=== PATIENT | male | born 1970 | race African-American/Black ===

== ENCOUNTER 2016-11-14 14:05 | Emergency (ER) | payer MEDICAID ==
[~2016-11-14] VITALS: Ht 165.1 cm; Wt 64.4 kg
[2016-11-14 14:23] VITALS: BP 113/73
[2016-11-14 14:45] LABS: APPEARANCE,URINE CLEAR; KETONES,URINE NEGATIVE (NEGATIVE); LEUKOCYTE ESTERASE ,URINE 2+ (NEGATIVE); NITRITE,URINE NEGATIVE (NEGATIVE); PH,URINE 6 (4.5-8.0); PROTEIN,URINE NEGATIVE (NEGATIVE); UROBILINOGEN,URINE 1 MG/DL (0.0-1.0)
[2016-11-14 14:57] LABS: RBC,URINE 0-2 /HPF (0 - 0)
[2016-11-14 14:59] LABS: BACTERIA,URINE FEW /HPF; SQUAMOUS EPITHELIAL CELL,UR OCCASIONAL /LPF (NONE/OCC)
[2016-11-14] MEDS ORDERED: CEPHALEXIN500 MG ORAL (15:08)
[2016-11-14] MEDS ORDERED: PHENAZOPYRIDIN200 MG ORAL (15:08)
[2016-11-14] MEDS ORDERED: PROAIR HFA8.5 GM INH (15:08)
[2016-11-14] MEDS ORDERED: Lidocaine 1% MPF 10mg/ml 5ml ONE (15:11)
[2016-11-14 15:14] VITALS: BP 124/71
[2016-11-14] MEDS ORDERED: Azithromycin 250mg tab ORAL ONE (15:15)
--- NOTE | 2016-11-14 19:51 | Emergency Room Report ---
History of Present Illness General Chief Complaint: Male Urogenital Problems Source: Patient Present Illness HPI The patient is a 46 year-old male presenting for possible STD exposure and dysuria. The patient states that he has been sick she active with a female which he is concerned about for an STD. The patient denies any discharge but does admit to dysuria which is described as an 8/10 burning with urination. Pain does not radiate. He also admits to seeing blood in his urine occasionally. The patient does admit to having STDs in the past. He denies any other symptoms including nausea, vomiting, fever, chills, testicular pain, rash Allergies: Coded Allergies: CODEINE (Verified Allergy, Unknown, 11/14/16) Patient History Past Medical History: see triage record Pertinent Family History: none Reviewed Nursing Documentation: PMH: Agreed, PSxH: Agreed Nursing Documentation-PMH Past Medical History: No History, Except For Hx Asthma: Yes Hx COPD: Yes - Emphesema Review of Systems All Other Systems: negative except mentioned in HPI Physical Exam Vital Signs Date Time Temp Pulse Resp B/P Pulse Ox O2 Delivery O2 Flow Rate FiO2 11/14/16 14:16 97.9 71 16 113/73 99 Room Air Sp02 EP Interpretation: reviewed, normal General Appearance: no apparent distress, alert, GCS 15, non-toxic Head: normocephalic, atraumatic Eyes: bilateral eye PERRL, bilateral eye normal inspection ENT: hearing grossly normal, normal pharynx, no angioedema, normal voice Respiratory: chest non-tender, lungs clear, normal breath sounds, speaking full sentences Gastrointestinal: normal bowel sounds, non tender, soft, non-distended, no guarding, no rebound Genitourinary: normal inspection, no CVA tenderness Musculoskeletal: back normal, gait/station normal, normal range of motion, non- tender Neurologic: alert, oriented x3, responsive, motor strength/tone normal, sensory intact, speech normal Psychiatric: judgement/insight normal, memory normal, mood/affect normal, no suicidal/homicidal ideation Skin: normal color, no rash, warm/dry, well hydrated Lymphatic: no adenopathy Medical Decision Making PA Attestation Dr. Lopez is my supervising physician. Patient management was discussed with my supervising physician Diagnostic Impression: Primary Impression: Urinary tract infection Qualified Codes: N39.0 - Urinary tract infection, site not specified Additional Impressions: Possible exposure to STD Asthma Qualified Codes: J45.20 - Mild intermittent asthma, uncomplicated ER Course The patient is a 46 year-old male presenting for possible STD exposure and dysuria. Differential diagnoses considered but not limited to: STD, urinary tract infection, urethritis, orchitis, malignancy Physical exam: Afebrile. No apparent distress Abdomen: Normal appearance. Non distended. No ecchymosis. Normal BS. Non TTP. No McBurney point tenderness. No guarding. No CVA tenderness Urinalysis is consistent with infection The patient will be treated in the emergency department for STD due to possible exposure. Patient will also be discharged with a prescription for antibiotics and Pyridium. he will followup with PMD and also urology due to stated history of blood in urine. ER precautions are given The patient is also given a refill of albuterol for asthma Laboratory Tests Test 11/14/16 14:23 Urine Color Pale yellow Urine Appearance Clear Urine pH 6 (4.5-8.0) Urine Specific [place] 1.015 (1.005-1.035) Urine Protein Negative (NEGATIVE) Urine Glucose (UA) Negative (NEGATIVE) Urine Ketones Negative (NEGATIVE) Urine Occult Blood Negative (NEGATIVE) Urine Nitrite Negative (NEGATIVE) Urine Bilirubin Negative (NEGATIVE) Urine Urobilinogen 1 MG/DL (0.0-1.0) H Urine Leukocyte Esterase 2+ (NEGATIVE) H Urine RBC 0-2 /HPF (0 - 0) H Urine WBC 5-10 /HPF (0 - 0) H Urine Squamous Epithelial Cells Occasional /LPF Urine Bacteria Few /HPF (NONE) Lab Results Impression There is few bacteria with white blood cells. No occult blood Last Vital Signs Date Time Temp Pulse Resp B/P Pulse Ox O2 Delivery O2 Flow Rate FiO2 11/14/16 15:14 97.9 76 16 124/71 99 Room Air Status: improved Disposition: HOME, SELF-CARE Condition: Improved Scripts Albuterol Sulfate* (PROAIR HFA*) 8.5 Gm Hfa.aer.ad 2 PUFFS INH Q6H, #8.5 GM 0 Refills Prov: TERZIAN,WAI P.A. 11/14/16 Cephalexin* (KEFLEX*) 500 Mg Capsule 500 MG ORAL EVERY 6 HOURS, #28 CAP Prov: TERZIAN,WAI P.A. 11/14/16 Phenazopyridine Hcl* (PYRIDIUM*) 200 Mg Tablet 200 MG ORAL THREE TIMES A DAY, #14 TAB 0 Refills Prov: WAI KELLEY 11/14/16 Referrals: NOT CHOSEN [facility]/,REFERRING (PCP) Patient Instructions: Urinary Tract Infection Additional Instructions: I discussed my findings with the patient. All questions and concerns have been answered. Treatment and medication compliance have been addressed. I advised the patient that they need to follow up with PMD in 3-5 days. Return to ED if symptoms worsen, new symptoms arise, or if needed for any reason. Patient verbalized understanding of discharge instructions. The patient will followup with urology as soon as possible as discussed WAI KELLEY November 14, 2016 19:50
== END 2016-11-14 15:15 | disposition home or self-care (01) ==
LOC: EMR 15:10
DX: N39.0 Urinary tract infection, site not specified (principal); Z20.2 Contact with and (suspected) exposure to infections with a predominantly sexual mode of transmission; J45.20 Mild intermittent asthma, uncomplicated; Z88.6 Allergy status to analgesic agent; J44.9 Chronic obstructive pulmonary disease, unspecified
CPT/HCPCS: 81003; 96372; 99284; J0696

== ENCOUNTER 2018-09-17 16:42 | Emergency (ER) | payer MEDICAID ==
[~2018-09-17] VITALS: Ht 167.6 cm; Wt 65.8 kg
[~2018-09-17 16:42] MED LIST: CEPHALEXIN500 MG ORAL; PHENAZOPYRIDIN200 MG ORAL; PROAIR HFA8.5 GM INH
[2018-09-17 16:45] VITALS: BP 124/86
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
[2018-09-17] MEDS ORDERED: Ketorolac 30mg Inj IM ONE (17:00)
--- NOTE | 2018-09-17 17:25 | Diagnostic Imaging Report ---
Indication: Pain, trauma Technique: 3 views right hand Comparison: none Findings: There is a slightly angulated fracture of the distal fifth metacarpal. No other acute fractures. No dislocations. The joint spaces are preserved Impression: Positive for fifth metacarpal fracture Findings discussed by phone with nurse marion Mendoza in the emergency room at the time of interpretation
[2018-09-17] MEDS ORDERED: IBUPROFEN800 MG ORAL (17:28)
[2018-09-17] MEDS ORDERED: ROBAXIN500 MG PO (17:32)
[2018-09-17 17:48] VITALS: BP 126/84
--- NOTE | 2018-09-17 17:49 | NUR ---
ED Nurse Note: PT SITTING PEACEFULLY IN BED IN NAD. AOX4. PRESCRIPTIONS AND DISCHARGE PAPERWORK EXPLAINED TO PT. PT VERBALIZES UNDERSTANDING AND ALL QUESTIONS ANSWERED. PRESCRIPTIONS AND DISCHARGE PAPERWORK GIVEN TO PT AND ID WRISTBAND REMOVED. PT WALKED OUT OF ER WITH STEADY GAIT AND ALL BELONGINGS.
== END 2018-09-17 17:49 | disposition home or self-care (01) ==
LOC: EDBD 16:42 → EMR 16:52
DX: S62.306A Unspecified fracture of fifth metacarpal bone, right hand, initial encounter for closed fracture (principal); V28.0XXA Motorcycle driver injured in noncollision transport accident in nontraffic accident, initial encounter; Y92.9 Unspecified place or not applicable; Z88.5 Allergy status to narcotic agent
CPT/HCPCS: 73130; 96372; 99283; J1885